=== PATIENT | male | born 1955 | race Asian ===

== ENCOUNTER 2016-05-04 12:26 | Emergency (ER) | payer BC ==
[~2016-05-04] VITALS: Ht 157.5 cm; Wt 49.9 kg
[2016-05-04 12:26] VITALS: BP 107/61; PULSE 49; RESP 18; TEMP 98.2; O2SAT 99
[2016-05-04] MEDS ORDERED: MORPHINE 4 MG/ML INJ. SYRINGE IVP ONE (13:15)
[2016-05-04] MEDS ORDERED: DIPHENHYDRAMINE INJ 50 MG/ML VIAL IVP ONE (13:15)
[2016-05-04] MEDS ORDERED: PIPERACILLIN/TAZO 3.38 GM in NS 50 ML IV ONE (13:15)
[2016-05-04] MEDS ORDERED: PIPERACILLIN/TAZOBACTAM 3.375 GM/VIAL (ZOSYN) IV ONE (13:24)
[2016-05-04 13:52] LABS: BILIRUBIN,URINE NEGATIVE (NEGATIVE); BLOOD, URINE 3+ (NEGATIVE); CLARITY/URINE SL HAZY (CLEAR); COLOR,URINE YELLOW (YELLOW); GLUCOSE,URINE 2+ (NEGATIVE); KETONES,URINE 1+ (NEGATIVE); LEUKOCYTE ESTERASE ,URINE NEGATIVE (NEGATIVE); NITRITE, URINE NEGATIVE (NEGATIVE); PROTEIN URINE 1+ (NEGATIVE); UROBILINOGEN,URINE 0.2 (0.2-1.0)
[2016-05-04 13:57] LABS: BASOPHILS # (AUTO) 0.2 K/uL (0.0-0.2); BASOPHILS % (AUTO) 1.5 % (0.0-2.0); EOSINOPHILS % (AUTO) 0.1 % (0.0-4.0); HEMATOCRIT 38.9 % (36-54); HEMOGLOBIN 12.4 g/dL (14.0-18.0); LYMPHOCYTES # (AUTO) 0.7 K/uL (1.0-5.5); LYMPHOCYTES % (AUTO) 4.8 % (20.5-51.5); MEAN CORPUSCULAR HEMOGLOBIN 21 pg (27-31); MEAN CORPUSCULAR HGB CONC 32 % (32-36); MEAN CORPUSCULAR VOLUME 65 fL (79.0-98.0); MONOCYTES # (AUTO) 0.2 K/uL (0.0-1.0); MONOCYTES % (AUTO) 1.4 % (1.7-9.3); NEUTROPHILS # (AUTO) 13.4 K/uL (1.8-7.7); NEUTROPHILS % (AUTO) 92.2 % (40.0-70.0); PLATELET COUNT (AUTO) 280 K/uL (130-430); RED BLOOD CELL COUNT(AUTO) 6.02 MIL/uL (4.2-6.2); RED CELL DISTRIBUTION WIDTH 14.6 % (9.0-15.0); WHITE BLOOD COUNT (AUTO) 14.5 K/uL (4.8-10.8)
[2016-05-04 14:08] LABS: BACTERIA,URINE FEW /HPF (None Seen); MUCUS,URINE 1+ /LPF (None Seen); RBC,URINE 80-100 /HPF (0-3)
[2016-05-04] MEDS ORDERED: KETOROLAC TROMETHAMINE 30 MG VIAL IVP ONE (14:30)
[2016-05-04 14:53] LABS: CREATININE 0.97 mg/dL (0.55-1.30)
[2016-05-04 14:54] LABS: INR 0.9 (0.80-1.20); PROTHROMBIN TIME 10.1 SECS (9.5-12.5)
[2016-05-04 14:58] LABS: TOTAL BILIRUBIN 0.6 mg/dL (0.0-1.0); TOTAL PROTEIN, SERUM 7.6 g/dL (6.4-8.3)
[2016-05-04 15:00] VITALS: BP 107/84; PULSE 49; RESP 18; TEMP 97; O2SAT 99
== END 2016-05-04 15:00 | disposition home or self-care (01) ==
LOC: SED 12:26
DX: N20.1 Calculus of ureter (principal)
CPT/HCPCS: 36415; 71010; 74176; 80053; 81000; 83605; 83690; 85025; 85610; 87040; 93005; 96365; 96375; 99285; J1200; J1885; J2270; J2543